=== PATIENT | female | born 1950 | race American Indian/Alaskan Native ===

== ENCOUNTER 2021-10-05 13:43 | Emergency (ER) | payer MEDICARE ==
--- NOTE | 2021-10-05 14:00 | Emergency Department Report ---
<EDINTANIKA ZARAGOZA - Last Filed: 10/05/21 23:36> ED Chest Pain HPI - General Stated Complaint: DIFFICULTY BREATHING Time Seen by Provider: 10/05/21 13:48 - Related Data Previous Rx's Medication Instructions Recorded Last Taken Type Albuterol Sulfate [Albuterol 0.63% 0.63 mg IH Q4HR PRN #2 ml 10/05/21 Unknown Rx NEBS] Albuterol Sulfate [Proair 90 mcg IH Q4HR PRN #2 aer.pow.ba 10/05/21 Unknown Rx Respiclick] DOXYCYCLINE Hyclate [Vibramycin] 100 mg PO Q12HR #10 capsule 10/05/21 Unknown Rx Ipratropium (Nf) [Atrovent] 2 puff IH Q6HR PRN #1 inha 10/05/21 Unknown Rx Ipratropium [Atrovent NEB] 0.5 mg IH Q4HR #2 ml 10/05/21 Unknown Rx predniSONE [Deltasone] 40 mg PO QDAY #8 tab 10/05/21 Unknown Rx Allergies Allergy/AdvReac Type Severity Reaction Status Date / Time No Known Allergies Allergy Verified 10/05/21 14:11 Heart Score - EKG Read Time Time EKG Completed: 13:58 EKG Read Time: 13:58 ED Past Medical Hx - Medications Home Medications: Home Medications Medication Instructions Recorded Confirmed Last Taken Type Albuterol Sulfate [Albuterol 0.63% 0.63 mg IH Q4HR PRN #2 ml 10/05/21 Unknown Rx NEBS] Albuterol Sulfate [Proair 90 mcg IH Q4HR PRN #2 aer.pow.ba 10/05/21 Unknown Rx Respiclick] DOXYCYCLINE Hyclate [Vibramycin] 100 mg PO Q12HR #10 capsule 10/05/21 Unknown Rx Ipratropium (Nf) [Atrovent] 2 puff IH Q6HR PRN #1 inha 10/05/21 Unknown Rx Ipratropium [Atrovent NEB] 0.5 mg IH Q4HR #2 ml 10/05/21 Unknown Rx predniSONE [Deltasone] 40 mg PO QDAY #8 tab 10/05/21 Unknown Rx ED Course - Reevaluation(s) Reevaluation #1: 10/05/21 18:19 The patient is seen and examined. She feels much improved. No wheezing at this time. Denies significant pain at this time. Speaking on a cell phone, in no acute distress. Lung sounds clear. Troponin negative x1 in the context of days of symptoms, myocardial infarction is therefore excluded. CT scan chest negative for significant findings. Discharge is a COPD exacerbation. We will discuss with her primary administrative secretary as a courtesy 10/05/21 18:31 Discussed patient's history, physical, laboratory studies imaging studies and physical exam findings with her private administrative secretary. She agrees with the plan of care. Discharged with outpatient follow-up. Patient is standing up at the desk, adamantly asking to be discharged. AMOS score - Amos Score Age > 65: (1) Yes Aspirin use within the Past 7 Days: (0) No 3 or more CAD Risk Factors: (0) No 2 or more Angina events in past 24 hrs: (0) No Known CAD with more than 50% Stenosis: (0) No Elevated Cardiac Markers: (0) No ST Deviation Greater than 0.5mm: (0) No AMOS Score: 1 ED Medical Decision Making - Lab Data Result diagrams: 10/05/21 14:29 10/05/21 14:29 Vital Signs 10/05/21 10/05/21 10/05/21 14:10 14:17 15:00 Temperature 98.6 F Pulse Rate 96 H 89 Pulse Rate [ Anterior Bilateral Throughout] Respiratory 25 H Rate Respiratory Rate [Anterior Bilateral Throughout] Blood Pressure 138/80 127/77 [Left] O2 Sat by Pulse 99 95 94 Oximetry 10/05/21 10/05/21 10/05/21 15:40 15:46 16:24 Temperature Pulse Rate 91 H 87 Pulse Rate [ 94 H Anterior Bilateral Throughout] Respiratory Rate Respiratory 20 Rate [Anterior Bilateral Throughout] Blood Pressure 141/83 134/82 [Left] O2 Sat by Pulse 93 93 Oximetry Lab Results 10/05/21 10/05/21 10/05/21 Range/Units 14:29 14:29 14:29 WBC 5.7 (4.5-11.0) K/mm3 RBC 4.53 (3.65-5.03) M/mm3 Hgb 13.0 (10.1-14.3) gm/dl Hct 40.1 (30.3-42.9) % MCV 89 (79-97) fl MCH 29 (28-32) pg MCHC 32 (30-34) % RDW 13.5 (13.2-15.2) % Plt Count 257 (140-440) K/mm3 Lymph % (Auto) 15.9 (13.4-35.0) % [place] % (Auto) 8.7 H (0.0-7.3) % Eos % (Auto) 8.2 H (0.0-4.3) % Baso % (Auto) 0.8 (0.0-1.8) % Lymph # (Auto) 0.9 L (1.2-5.4) K/mm3 [place] # (Auto) 0.5 (0.0-0.8) K/mm3 Eos # (Auto) 0.5 H (0.0-0.4) K/mm3 Baso # (Auto) 0.0 (0.0-0.1) K/mm3 Seg Neutrophils % 66.4 (40.0-70.0) % Seg Neutrophils # 3.8 (1.8-7.7) K/mm3 Sodium 138 (137-145) mmol/L Potassium 4.0 (3.6-5.0) mmol/L Chloride 103.9 (98-107) mmol/L Carbon Dioxide 20 L (22-30) mmol/L Anion Gap 18 mmol/L BUN 16 (7-17) mg/dL Creatinine 0.7 (0.6-1.2) mg/dL Estimated GFR > 60 ml/min BUN/Creatinine Ratio 23 % Glucose 95 (65-100) mg/dL Calcium 10.4 H (8.4-10.2) mg/dL Total Bilirubin 0.50 (0.1-1.2) mg/dL AST 21 (5-40) units/L ALT 12 (7-56) units/L Alkaline Phosphatase 94 (35-129) units/L Troponin T < 0.010 (0.00-0.029) ng/mL NT-Pro-B Natriuret Pep 76.31 (0-900) pg/mL Total Protein 6.8 (6.3-8.2) g/dL Albumin 4.4 (3.9-5) g/dL Albumin/Globulin Ratio 1.8 % - Radiology Data Radiology results: report reviewed, image reviewed CTA CHEST WITH CONTRAST INDICATION / CLINICAL INFORMATION: pleuritic chest pain hx of breast CA 100 ML OMNI 350 . TECHNIQUE: Axial CT images were obtained through the chest after injection of IV contrast. 3 plane MIP and/or 3D reconstructions were produced. All CT scans at this location are performed using CT dose reduction for ALARA by means of automated exposure control. COMPARISON: None available. FINDINGS: PULMONARY EMBOLUS: None. THORACIC AORTA: No significant abnormality. HEART: No significant abnormality. CORONARY ARTERY CALCIFICATION: Absent -- None. MEDIASTINUM / YE: No significant abnormality. PLEURA: No pleural effusion. No pneumothorax. LUNGS: There is mild diffuse bronchiectasis. Mild increased subpleural reticular markings are noted which could be seen in the setting of interstitial lung disease or early fibrosis. These are greatest in the bases. ADDITIONAL FINDINGS: There is asymmetric skin thickening at the right breast with asymmetric soft tissue density in the superior right breast. There are a few densities in this region which may be clips related to prior biopsy. All these findings may be postsurgical. UPPER ABDOMEN: No acute findings. SKELETAL STRUCTURES: No significant osseous abnormality. IMPRESSION: 1. No CT evidence for pulmonary embolism. 2. No consolidation or effusion. 3. Mild subpleural increased reticular markings greatest in the bases can be seen in the setting of interstitial lung disease/early cirrhosis. Signer Name: Jared Martínez MD Signed: 10/05/2021 4:10 PM Workstation Name: [id number] ED Disposition Clinical Impression: COPD exacerbation, Pleuritic chest pain Disposition: 01 HOME / SELF CARE / HOMELESS Is pt being admited?: No Does the pt Need Aspirin: No Condition: Good Instructions: Chronic Obstructive Pulmonary Disease, [id number], Chronic Obstructive Pulmonary Disease (ED) Additional Instructions: Please take the medications as needed and directed. Take Tylenol or ibuprofen [id number] as needed for physical pain. Do not take Metformin medication for the next 3 days, if patient takes this medication. We recommend that the patient contact her private administrative secretary and arrange follow-up in the next 5 to 7 days. Please continue current outpatient medications otherwise. Please return to the emergency room right away with new pain, worsened pain, migration of pain, proj ectile vomiting, change in mental status, confusion, inability tolerate liquid feeds, new, worsened or different symptoms not present on the initial emergency room evaluation Prescriptions: Albuterol Sulfate [Albuterol 0.63% NEBS] 0.63 mg IH Q4HR PRN #2 ml PRN Reason: Wheezing Ipratropium (Nf) [Atrovent] 2 puff IH Q6HR PRN #1 inha PRN Reason: Wheezing Ipratropium [Atrovent NEB] 0.5 mg IH Q4HR #2 ml predniSONE [Deltasone] 40 mg PO QDAY #8 tab Albuterol Sulfate [Proair Respiclick] 90 mcg IH Q4HR PRN #2 aer.pow.ba PRN Reason: Wheezing DOXYCYCLINE Hyclate [Vibramycin] 100 mg PO Q12HR #10 capsule Referrals: VERONICA VELAZQUEZ [Other] - 3-5 Days LIYA SINGH MD [Staff Physician] - 3-5 Days <GLEN BARLOW - Last Filed: 10/06/21 09:04> ED Chest Pain HPI - General PUI?: Yes Source: patient Mode of arrival: Ambulatory Limitations: No Limitations - History of Present Illness Initial Comments: Chief complaint: Shortness of breath, cough HPI: This is a 71-year-old female with a history of stage I breast cancer in remission, COPD, chronic respiratory failure dependent on 2 L oxygen 24 hours, diverticulitis, hyperlipidemia presents with shortness of breath cough pleuritic chest pain for several days. Severe shortness of breath. Patient was evaluated by her administrative secretary Dr. Singh who referred her to emergency department to rule out pulmonary embolism with CT angiogram of the chest. Complaint: chest pain, other (Shortness of breath, cough) -: Gradual, days(s) (Several days) Onset: during rest Pain Location: substernal Severity: mild Quality: sharp (Short with inspiration and cough) Consistency: intermittent Improves With: other (Exertion) Worsens With: other (Rest) Context: other (History of chest pain) re: denies: nausea, vomting Other Symptoms: cough Treatments Prior to Arrival: other (evaluation by administrative secretary in office today) Heart Score - HEART Score History: Slightly suspicious EKG: Non-specific Age: 45-65 Risk factors: 1-2 risk factors Troponin: < normal limit HEART Score: 3 - Critical Actions Critical Actions: 0-3 pts:0.9-1.7%risk of adverse cardiac event.Candidate for discharge ED Review of Systems ROS: Stated complaint: DIFFICULTY BREATHING Other details as noted in HPI Comment: All other systems reviewed and negative Constitutional: denies: chills, fever, malaise Respiratory: shortness of breath. denies: cough Cardiovascular: chest pain Gastrointestinal: denies: abdominal pain, nausea, vomiting ED Past Medical Hx - Past Medical History Previous Medical History?: Yes Hx Hypertension: Yes Hx of Cancer: Yes (Stage I breast cancer) Hx COPD: Yes Additional medical history: Diverticulitis, hyperlipidemia - Surgical History Past Surgical History?: Yes Hx Appendectomy: Yes Additional Surgical History: Lumpectomy, lymph node dissection - Family History Family history: hypertension - Social History Smoking Status: Former Smoker Substance Use Type: None ED Physical Exam - General General appearance: alert, in distress, other (tripod position, mild respiratory distress, out of breath while speaking) - Head Head exam: Present: atraumatic, normocephalic - Eye Eye exam: Present: normal appearance - ENT ENT exam: Present: mucous membranes moist - Neck Neck exam: Present: normal inspection, full ROM - Respiratory Respiratory exam: Present: respiratory distress, decreased breath sounds, prolonged expiratory. Absent: wheezes, rales, rhonchi - Cardiovascular Cardiovascular Exam: Present: regular rate, normal rhythm, normal heart sounds. Absent: systolic murmur, diastolic murmur, rubs, gallop - GI/Abdominal GI/Abdominal exam: Present: soft, normal bowel sounds. Absent: distended, tenderness, guarding, rebound - Extremities Exam Extremities exam: Present: normal inspection - Neurological Exam Neurological exam: Present: alert, oriented X3 - Psychiatric Psychiatric exam: Present: normal affect, normal mood - Skin Skin exam: Present: warm, dry, intact, normal color. Absent: rash ED Course Vital Signs 10/05/21 10/05/21 10/05/21 14:10 14:17 15:00 Temperature 98.6 F Pulse Rate 96 H 89 Pulse Rate [ Anterior Bilateral Throughout] Respiratory 25 H Rate Respiratory Rate [Anterior Bilateral Throughout] Blood Pressure 138/80 127/77 [Left] O2 Sat by Pulse 99 95 94 Oximetry 10/05/21 10/05/21 10/05/21 15:40 15:46 16:24 Temperature Pulse Rate 91 H 87 Pulse Rate [ 94 H Anterior Bilateral Throughout] Respiratory Rate Respiratory 20 Rate [Anterior Bilateral Throughout] Blood Pressure 141/83 134/82 [Left] O2 Sat by Pulse 93 93 Oximetry ED Medical Decision Making - Lab Data Result diagrams: 10/05/21 14:29 10/05/21 14:29 - EKG Data -: EKG Interpreted by Me EKG shows normal: sinus rhythm Rate: tachycardia - EKG Data 10/05/21 14:14 REKG obtained at 1358 EKG interpreted by me Sinus tachycardia 100 beats per minute left axis deviation no ST elevation nonspecific T wave pattern Critical care attestation.: If time is entered above; I have spent that time in minutes in the direct care of this critically ill patient, excluding procedure time. ED Disposition Is pt being admited?: No Does the pt Need Aspirin: No
[2021-10-05] MEDS ORDERED: methylPREDNISolone Sod Succinate 40 MG/1 ML INJ IV STA (14:32)
[2021-10-05] MEDS ORDERED: IPRATROPIUM 0.02% NEBU 2.5 ML IH ONE (14:32)
[2021-10-05] MEDS ORDERED: ALBUTEROL 2.5 MG/3 ML NEBU IH ONE (14:32)
[2021-10-05 14:45] LABS: Basophils % (Auto) 0.8 % (0.0-1.8); Eosinophils # (Auto) 0.5 K/mm3 (0.0-0.4); Eosinophils % (Auto) 8.2 % (0.0-4.3); Hematocrit 40.1 % (30.3-42.9); Lymphocytes # (Auto) 0.9 K/mm3 (1.2-5.4); Lymphocytes % (Auto) 15.9 % (13.4-35.0); Mean Corpuscular HGB Conc 32 % (30-34); Mean Corpuscular Volume 89 fl (79-97); Monocytes # (Auto) 0.5 K/mm3 (0.0-0.8); Monocytes % (Auto) 8.7 % (0.0-7.3); Platelet Count 257 K/mm3 (140-440); Red Blood Count 4.53 M/mm3 (3.65-5.03); Red Cell Distribution Width 13.5 % (13.2-15.2)
[2021-10-05 15:04] LABS: Alanine Aminotransferase 12 units/L (7-56); Albumin 4.4 g/dL (3.9-5); Blood Urea Nitrogen 16 mg/dL (7-17); Calcium 10.4 mg/dL (8.4-10.2); Hemolysis Index 0
[2021-10-05 15:06] LABS: BUN/Creatinine Ratio 23
[2021-10-05 16:25] VITALS: BP 134/82
--- NOTE | 2021-10-05 17:14 | Cat Scan Report ---
CTA CHEST WITH CONTRAST INDICATION / CLINICAL INFORMATION: pleuritic chest pain hx of breast CA 100 ML OMNI 350 . TECHNIQUE: Axial CT images were obtained through the chest after injection of IV contrast. 3 plane [place] P and/or 3D reconstructions were produced. All CT scans at this location are performed using CT dose reduction for ALARA by means of automated exposure control. COMPARISON: None available. FINDINGS: PULMONARY EMBOLUS: None. THORACIC AORTA: No significant abnormality. HEART: No significant abnormality. CORONARY ARTERY CALCIFICATION: Absent -- None. MEDIASTINUM / YE: No significant abnormality. PLEURA: No pleural effusion. No pneumothorax. LUNGS: There is mild diffuse bronchiectasis. Mild increased subpleural reticular markings are noted w hich could be seen in the setting of interstitial lung disease or early fibrosis. These are greatest in the bases. ADDITIONAL FINDINGS: There is asymmetric skin thickening at the right breast with asymmetric soft tis pilar density in the superior right breast. There are a few densities in this region which may be clips related to prior biopsy. All these findings may be postsurgical. UPPER ABDOMEN: No acute findings. SKELETAL STRUCTURES: No significant osseous abnormality. IMPRESSION: 1. No CT evidence for pulmonary embolism. 2. No consolidation or effusion. 3. Mild subpleural increased reticular markings greatest in the bases can be seen in the setting of i nterstitial lung disease/early cirrhosis. Signer Name: Jared Martínez MD Signed: 10/05/2021 5:10 PM Workstation Name: [id number]
--- NOTE | 2021-10-06 11:25 | Electrocardiograph Report ---
[facility] Test Date: 2021-10-05 Test Time: 13:58:43 Pat Name: TRACI CHICAS Department: Room: Gender: F Financial Services Auditor: TV : 1950 Requested By: GLEN BARLOW Order Number: [id number] Reading MD: Jett Abarca Measurements Intervals [place] Rate: 101 P: 22 [place]: 147 QRS: -36 QRSD: 86 T: 41 QT: 343 QTc: 446 Interpretive Statements Sinus tachycardia Left axis deviation RVH with secondary repolarization abnrm No previous ECG available for comparison Electronically Signed On 10-06-2021 11:24:53 EDT by Jett Abarca
== END 2021-10-05 18:39 | disposition home or self-care (01) ==
LOC: ED 13:43
DX: J44.1 Chronic obstructive pulmonary disease with (acute) exacerbation (principal); R07.9 Chest pain, unspecified
CPT/HCPCS: 36415; 71275; 80053; 83880; 84484; 85025; 93005; 94640; 96374; 99284; J2920; Q9967; 94644